=== PATIENT | male | born 1935 | race Caucasian/White ===

== ENCOUNTER 2019-01-03 17:01 | Inpatient (IN) | payer MEDICARE, OTHER ==
[~2019-01-03] VITALS: Ht 188 cm; Wt 166.0 kg
[2019-01-03] MEDS ORDERED: BISA10S PR (17:26)
[2019-01-03] MEDS ORDERED: CYCL10 PO (17:26)
[2019-01-03] MEDS ORDERED: ACET500 (17:26)
[2019-01-03] MEDS ORDERED: Prozac20 MG PO (17:27)
[2019-01-03] MEDS ORDERED: ERGO400 PO (17:27)
[2019-01-03] MEDS ORDERED: LIDO700A20 TOP (17:28)
[2019-01-03] MEDS ORDERED: MAGOXI400 PO (17:28)
[2019-01-03] MEDS ORDERED: MELO7.5 PO (17:29)
[2019-01-03] MEDS ORDERED: Lopressor 25 mg25 MG PO (17:29)
[2019-01-03 17:44] LABS: BASOPHILS ABSOLUTE AUTO 0.03 K/mm3 (0.00-0.23); BASOPHILS PERCENT AUTO 0 % (0-2); EOSINOPHILS PERCENT AUTO 0 % (0-6); Hematocrit 42.5 % (37.0-53.0); Hemoglobin 13.2 g/dL (13.5-17.5); IMMATURE GRAN ABSOLUTE AUTO 0.04 K/mm3 (0.00-0.10); IMMATURE GRAN PERCENT AUTO 1 % (0-1); LYMPHOCYTES PERCENT AUTO 5 % (21-46); MONOCYTES ABSOLUTE AUTO 0.59 K/mm3 (0.16-1.47); MONOCYTES PERCENT AUTO 7 % (4-13); Mean Corpuscular HGB 31.1 pg (26.0-34.0); Mean Corpuscular HGB Conc 31.1 g/dL (31.5-36.5); Mean Corpuscular Volume 100 fL (80-100); Mean Platelet Volume 9.2 fL (9.1-12.4); NEUTROPHILS ABSOLUTE AUTO 7.17 K/mm3 (1.96-9.15); NEUTROPHILS PERCENT AUTO 87 % (41-73); Platelet Count 349 K/mm3 (150-400); RDW Coefficient Variation 15.8 % (11.7-14.2); RDW Standard Deviation 58.1 fL (35.1-46.3); Red Blood Cell Count 4.24 M/mm3 (4.30-5.90); White Blood Cell Count 8.23 K/mm3 (4.00-11.30)
[2019-01-03 18:09] LABS: Source, Urine Catheter
[2019-01-03] MEDS ORDERED: Milk Of Ma400 MG/5 M PO (18:11)
[2019-01-03] MEDS ORDERED: OSEL75CA PO (18:11)
[2019-01-03] MEDS ORDERED: PANT40 PO (18:12)
[2019-01-03 18:15] LABS: Alanine Aminotransfer (ALT/SGP 20 U/L (12-78); Albumin, Blood 2.4 g/dL (3.4-5.0); Albumin/Globulin Ratio 0.5 (0.8-1.8); Alk Phos 174 U/L (50-136); Anion Gap 4 mmol/L (6-16); Aspartate Aminotrans (AST/SGOT 32 U/L (12-37); Bilirubin, Total 0.6 mg/dL (0.1-1.0); Blood Urea Nitrogen 17 mg/dL (8-24); Bun/Creatinine Ratio 19.4 (12.0-20.0); CO2, Blood 34 mmol/L (21-32); Calcium, Blood 8.9 mg/dL (8.5-10.1); Chloride, Blood 100 mmol/L (98-108); Creatinine, Blood 0.88 mg/dL (0.60-1.20); Globulin, Blood 5.1 g/dL (2.2-4.0); Glomerular Filtration Rate >60 (60-); Glucose, Blood 117 mg/dL (70-99); Sodium, Blood 138 mmol/L (136-145); Total Protein, Blood 7.5 g/dL (6.4-8.2)
[2019-01-03] MEDS ORDERED: ALBU2.5V5 NEB (18:18)
[2019-01-03] MEDS ORDERED: GAVILAX17 GM PO (18:18)
[2019-01-03] MEDS ORDERED: Senna8.6 MG PO (18:19)
[2019-01-03 18:32] LABS: Appearance, Urine Bloody (Clear); Bilirubin, Urine Neg (Neg); Blood, Urine 5+ (Neg); Color, Urine Red (P-Yellow); Glucose Qualitative, Urine Neg (Neg); Ketones, Urine 1+ (Neg); Leukocyte Esterase, Urine Neg (Neg); Nitrite, Urine Neg (Neg); Protein, Urine 4+ (Neg); Specific Gravity, Urine 1.015 (1.003-1.022); Urobilinogen, Urine NORM (Normal); pH, Urine 6.5 (5.0-8.0)
[2019-01-03 18:40] LABS: Bacteria Few /hpf; Red Blood Cells, Urine TNTC /hpf (0-2); Squamous Epithelial Cells Not Seen /hpf (Few); White Blood Cells, Urine 0-2 /hpf (0-5)
[2019-01-03 19:01] LABS: PCO2 Arterial 50.5 mmHg (35-45); PO2 Arterial 70.5 mmHg (80-100); pH Blood Arterial 7.42 (7.35-7.45)
--- NOTE | 2019-01-03 23:28 | NUR ---
CALLED MELVI GARDNER RN FOR TRANSFER REPURT ON PT BEING ADMITTED WITH AFIB RVR HYPOXIA SOB AND NEW ONSET BLOODY URINE OUT VIA INDWELLING KNAPP CATH. UA SHOWED RBC TNTC AND CULTURE WAS NOT INDICATED. WILL BE TELE BED NPO AND HAS DNR STATUS. SON WAS UPDATED BY ER AND HE IS POA. AWAIT ADMISSION
--- NOTE | 2019-01-04 02:29 | NUR ---
83 YEAR OLD MALE ADMITTED TO MEDICAL FLOOR WITH AFIB RVR SEPSIS HEMATURIA AND HYPOXIA. PT MINIMALLY RESPONSIVE NPO IN IV FLUIDS. IV ANTIBIOTICS. ON 10 L HIGH FLOW OXYGEN, 3 L BASELINE PER REPORT. DNR STATUS. ON TEL MONITOR AFIB RATE 107.
[2019-01-04 05:00] LABS: Alanine Aminotransfer (ALT/SGP 20 U/L (12-78); Albumin/Globulin Ratio 0.5 (0.8-1.8); Alk Phos 145 U/L (50-136); Anion Gap 5 mmol/L (6-16); Aspartate Aminotrans (AST/SGOT 33 U/L (12-37); Bilirubin, Total 0.3 mg/dL (0.1-1.0); Blood Urea Nitrogen 22 mg/dL (8-24); CO2, Blood 33 mmol/L (21-32); Calcium, Blood 8.2 mg/dL (8.5-10.1); Chloride, Blood 103 mmol/L (98-108); Creatinine, Blood 0.96 mg/dL (0.60-1.20); Globulin, Blood 4.3 g/dL (2.2-4.0); Glomerular Filtration Rate >60 (60-); Glucose, Blood 94 mg/dL (70-99); Magnesium, Blood 1.8 mg/dL (1.6-2.4); Sodium, Blood 141 mmol/L (136-145); Total Protein, Blood 6.3 g/dL (6.4-8.2)
[2019-01-04 07:23] LABS: BASOPHILS ABSOLUTE AUTO 0.04 K/mm3 (0.00-0.23); BASOPHILS PERCENT AUTO 0 % (0-2); EOSINOPHILS ABSOLUTE AUTO 0.01 K/mm3 (0.00-0.68); EOSINOPHILS PERCENT AUTO 0 % (0-6); Hematocrit 42.5 % (37.0-53.0); Hemoglobin 13.3 g/dL (13.5-17.5); IMMATURE GRAN ABSOLUTE AUTO 0.06 K/mm3 (0.00-0.10); IMMATURE GRAN PERCENT AUTO 1 % (0-1); LYMPHOCYTES ABSOLUTE AUTO 0.83 K/mm3 (0.84-5.20); LYMPHOCYTES PERCENT AUTO 9 % (21-46); MONOCYTES ABSOLUTE AUTO 1.01 K/mm3 (0.16-1.47); MONOCYTES PERCENT AUTO 11 % (4-13); Mean Corpuscular HGB 30.6 pg (26.0-34.0); Mean Corpuscular HGB Conc 31.3 g/dL (31.5-36.5); Mean Corpuscular Volume 98 fL (80-100); NEUTROPHILS ABSOLUTE AUTO 7.17 K/mm3 (1.96-9.15); NEUTROPHILS PERCENT AUTO 79 % (41-73); Platelet Count 242 K/mm3 (150-400); RDW Coefficient Variation 15.8 % (11.7-14.2); RDW Standard Deviation 56.3 fL (35.1-46.3); Red Blood Cell Count 4.34 M/mm3 (4.30-5.90); White Blood Cell Count 9.12 K/mm3 (4.00-11.30)
--- NOTE | 2019-01-04 07:57 | NUR ---
unable to give tylenol rectal suppository. Pt unable to roll side to side. more alert this am, able to verbalize. Urine continues to have clots and maroon colored urine. denies acute pain afebrile.
--- NOTE | 2019-01-04 08:43 | NUR ---
PT. MORBIDLY OBESE AND UNABLE TO ROLL OR TURN IN. REQUESTED A LIFT ROOM FOR PATIENT. ROOM #311 ASSIGNED. REPORT GIVEN TO MARIE COATS AND DR. FLOREZ NOTIFIED. PT. IS LETHARGIC BUT OPENS EYES WHEN SPOKEN TO. ON 8 LITERS OXYGEN VIA OXYMIZER. KNAPP CATHETER FLUSHED DUE TO BLOOD CLOTS URINE DARK RED. PAS IN PLACE, FLUIDS RUNNING. CNAS MOVED PT TO 311.
[2019-01-04 11:29] LABS: Influenza A Negative (NEGATIVE); Influenza B Negative (NEGATIVE)
[2019-01-04 17:19] LABS: Vancomycin, Random 6.7 ug/mL
--- NOTE | 2019-01-04 19:32 | NUR ---
SHIFT SUMMARY: PATIENT XFR FROM ROOM 363 THIS SHIFT; PT OBESE; REQUIRES LIFT ROOM. TELE IN PLACE; A-FIB c RVR; METOPROLOL IV FOR HR>120BPM. O2 @ 8L VIA OXYMIZER. CHRONIC KNAPP IN PLACE; PATENT AND DRAINING DARK URINE. INFLUENZA A&B NEGATIVE; TAMIFLU D/C'd. LEVAQUIN & VANCOMYCIN IV. PATIENT NPO AWAITING SWALLOW EVAL. REPORT GIVEN TO ONCOMING RN.
--- NOTE | 2019-01-04 21:37 | NUR ---
1999 PATIENT WAS FOUND TO BE 80/40S AT SHIFT CHANGE PER REPORT FROM DAY NURSE THIS IS 2ND TO IV METOPROLOL GIVEN FOR SUSTAINED HR OF 130S PER TELEMETRY. RAISED PATIENTS HOB AND PT IS ALOS TEMP OF 101 SO STIPPED BLANKETS OFF AND LOWERED ROOM TEMP. PT HAS IVF INFUSING AT 125 ML/HR 2114 RETURNED TO RECHECK PATIENT VITALS, BP IMPROVED 125/80'S BUT NOW POOR PROFUSION, TEMP 99.2, SPOKE TO RT AND TELEMETRY AND CHARGE BEFORE CALLING DR TO HAVE PATIENT MOVED TO ICU 2134: ALSO REPORTED CITIAC[employer] VALUE; POSITIVE BLOOD CX - GRAM + COCCYI REPORTED BY ROBERT IN MICROBIOLOGY AT 2124
--- NOTE | 2019-01-04 22:15 | NUR ---
GAVE REPORT TO PCU PHYLLIS MONROY
--- NOTE | 2019-01-04 22:21 | NUR ---
PATIENT LEFT THE FLOOR TO PCU
--- NOTE | 2019-01-04 22:35 | NUR ---
PT ARRIVAL. PT WAS A TRANSFER FROM MEDICATL FLOOR TO THIS UNIT. PT WAS ADMITTED DUE TO AFIB RVR, HIS HR IS IN THE 130'S-140'S AND HIS BP ON ARRIVAL WAS 96/56, PT WAS FEBRILE AT 101.8. PT IS NPO DUE TO ASPIRATION RISK. COOLING MEASURES WERE STARTED. TELE INTACT, AFIB W/BBB IN THE 130'S, PT'S BP ABOVE, EDEMA NOTED TO THE PT'S LLE IS 3+, RLE IS 2+, PT HAS GENERALIZED EDEMA WELL. PT'S L/S DIM T/O WITH FINE COARSENESS IN THE BASES. PT IS ON 15L OXYMIZER AT 91%, RR 32, EVEN BUT LABORED, PT IS ABLE TO ANSWER YES OR NO QUESTIONS, HE IS A&Ox4. BT PRESENT BUT VERY HYPOACTIVE, ABD IS MILD DISTENDED, FIRM AND TENDER TO PALP. PT'S KNAPP IS PATENT DRAINING TEA COLORED URINE WITH SEDIMENT, THIS IS A CHRONIC KNAPP DUE TO RETENTION. CALL LIGHT IN REACH, BED IS LOCKED AND LOW WILL CONTINUE TO MONITOR.
[2019-01-05 04:08] LABS: Vancomycin, Random 12.2 ug/mL
--- NOTE | 2019-01-05 04:59 | NUR ---
CALLED PATIENTS SON TO MAKE HIM AWARE OF PATIENTS MOVE TO PCU 16
--- NOTE | 2019-01-05 05:59 | NUR ---
SHIFT SUMMARY. PT'S IS ON 13 L OXYMIZER WITH O2 SATS AT 94%. PT HAS BEEN TURNED Q2 HOURS. PT HAD A MED INCONT BM, MEPILEX WAS PLACED ON HIS BUTTOCK DUE TO OPEN AREA/SKIN TEAR (SEE PICTURES IN CHART.) PT ALSO HAS AN OPEN YEAST RASH (SEE PICTURES IN CHART) UNDER HIS PANNUS, NYSTATIN POWDER WAS OBTAINED. DRESSING WAS PLACED ON A SMALL OPEN AREA BEHIND THE PT'S RIGHT EAR (SEE PICTURES IN CHART). PT'S HR HAS TRENDED UP TO THE 140'S-150'S PER HYDROMETER TESTER, HIS BP WAS 114/57, PT WAS MEDICATED PER EMAR W/LOPRESSOR. PT'S HR DROPPED DOWN TO THE 120'S, HIS BP: 96/56. CALL LIGHT IN REACH, BED IS LOCKED AND LOW WILL CONTINUE TO MONITOR UNTIL REPORT IS GIVEN TO ONCOMING RN.
--- NOTE | 2019-01-05 07:30 | NUR ---
RECEIVED REPORT FROM MARIE VASQUEZ, AND ASSUMED CARE OF PT.
--- NOTE | 2019-01-05 09:05 | NUR ---
DR. KNIGHT AT BEDSIDE FOR EVALUATION.
--- NOTE | 2019-01-05 20:38 | NUR ---
ASSUMED CARE - PCU NOC PATIENT ALERT AND ORIENTED TO SELF, LOCATION AND SITUATION. PATIENT REPORTS BACK PAIN BUT REFUSED PAIN MEDICATION. PATIENT HAS CHRONIC KNAPP IN PLACE, BLOOD NOTED AROUND MEATUS, URINE CLOUDY WITH SEDIMENT. PANIS HAS WOUND IN SKIN FOLDS WITH YEAST NOTED - NYSTATIN APPLIED. PATIENT IS A CEILING LIFT PATIENT, REPOSITIONED WITH PILLOWS AND LIFE WITH 2 PERSON MAXIMUM. SWELLING/EDEMA NOTED IN BLE - BLE ELEVATED WITH 2 PILLOWS (HEALS FLOATED). PATIENT HAS NO MOVEMENT OF BLE (QUAD AT BASELINE WITH UPPER EXTREMTY MOVEMENT LIMITED). VSS - PATIENT TITRATED DOWN TO 10 LPM ON OXYMIZER. RESP E/U AT REST. WILL CONTINUE TO MONITOR. CALL LIGHT W/I REACH.
--- NOTE | 2019-01-06 00:06 | NUR ---
NOTIFIED MD YOUNGER NOTIFIED MD THAT PATIENTS HR WAS SUSTAINING IN THE 130'S-140'S - AND THAT PATIENT HAD METOPROLOL IV PUSH THAT THE PERAMETERS STOPPED THIS RN FROM GIVING DUE TO SBP LESS THAN 110 - MD ORDERED 500 CC BOLUS AND STATED TO HOLD METOPROLOL UNTIL SBP GREATER THAN 110.
--- NOTE | 2019-01-06 02:20 | NUR ---
MD YOUNGER NOTIFIED NOTIFIED OF HEART RATE 150'S IN AFIB AND CONTINUED SBP <110. NEW ORDERS GIVEN.
--- NOTE | 2019-01-06 06:13 | NUR ---
PCU NOC SHIFT SUMMARY PATIENT ALERT AND ORIENTED X4 T/O SHIFT. PATIENT BEDBOUND AT BASELINE (FUNCTIONAL UPPER EXTREMETY QUAD). PATIENT HAS CHRONIC BACK PAIN - REFUSED PAIN MEDICATION T/O SHIFT. HR REMAIN AFIB RVR IN THE 130-160'S, MD NOTIFIED - MEDICATIONS GIVEN PER EMAR. PATIENTS OXYGEN TITRATED DOWN FROM 13 TO 4 LPM OXYMIZER THIS SHIFT. WILL CONTINUE TO MONITOR AND REPORT TO DAYSHIFT RN, CALL LIGHT W/I REACH - PATIENT USES APPROPRIATELY.
[2019-01-06 08:30] LABS: Vancomycin, Trough 17.2 ug/mL (5.0-10.0)
--- NOTE | 2019-01-06 08:40 | NUR ---
ASSUMED CARE / DR. KNIGHT: REPORT RECEIVED FROM ANYI Meadows RN. ASSUMED CARE OF THIS PT AT APPROX 0700. ON ASSESSMENT, PT IS WORKING W/ SPEECH THERAPY. NEW GUIDELINES FOR SAFE SWALLOWING HAVE BEEN POSTED ON PT WHITEBOARD. MEDS TO BE GIVEN WHOLE W/ APPLESAUCE, PT TO BE SITTING FULLY UPRIGHT TOLERATED FOR PO INTAKE. PT CURRENTLY ON 4L NC W/ O2 SATS > 90%. HE DENIES CP OR SOB. DOES HAVE C/O CHRONIC PAIN TO LOW BACK THAT IS EXACERBATED W/ MVMT & MANAGEABLE AT REST. PROVIDER AT BEDSIDE TO SEE PT. ORDERS WILL BE PLACED FOR MEDS TO MANAGE TACHYCARDIA. NO OTHER CHANGES AT THIS TIME, WILL AWAIT FAMILY TO DISCUSS/DECIDE REGARDING HOSPICE PER REPORT. WILL CONTINUE TO MONITOR & UPDATE NEEDED.
--- NOTE | 2019-01-06 18:32 | NUR ---
SHIFT SUMMARY: NO ACUTE CHANGES THIS SHIFT. PT REMAINS A&O, COOPERATIVE W/ CARE. HE IS OFTEN FORGETFUL & MUMBLES WHEN SPEAKING AT TIMES. Q2H TURNS, BEDREST. GROSS MVMT OF BUE, NO MVMT OF BLE. LS ARE DIM T/O, PT REMAINS ON 4L OXYMIZER W/ O2 SATS > 90%. TITRATED UP TO 5L x1 WHEN DESATS NOTED AFTER PT REMOVED OXYMIZER TO "PICK HIS NOSE." MONITOR CONTINUES SHOWING AFIB, HR AVG 110-140s. PT HAS GOOD APPETITE, IS INCONTINENT OF BOWEL. C/O NAUSEA W/ DRY HEAVING AFTER EATING A SMALL AMNT OF DINNER THIS EVENING, MEDS PER EMAR RESOLVED THIS. CHRONIC KNAPP REMAINS PATENT/DRAINING, URINE IS CLOUDY W/ SEDIMENT. MEATUS CONTINUES OOZING & BLEEDING A SMALL AMNT AROUND KNAPP. NYSTATIN ORDERED FOR YEAST/REDNESS TO PANUS FOLDS. POWERGLIDE TO WAQAS DRAWS W/O DIFFICULTY. UPON SPEAKING W/ PT's SON, VISHAL, THIS AFTERNOON HE STS THAT HE WOULD PREFER THAT THE PT BE SENT BACK TO [facility], AT WHICH HE HAS LIVED FOR APPROX 7 YRS, ON DISCHARGE. CIGAR INSPECTOR INVOLVED W/ CARE. WILL CONTINUE TO MONITOR & REPORT OFF TO ONCOMING RN.
--- NOTE | 2019-01-06 19:45 | NUR ---
ASSUMED CARE PT SLEEPING IN ROOM COMFORTABLY. PER DAY SHIFT RN NO ACUTE CHANGES IN STATUS. PT RESP EVEN UNLABORED ON 4L VIA OXIMIZER W/ SATS >92%. PT REQUIRES Q2 HR TURNING USING CEILING LIFT. REPORTS NO PAIN AT REST, BACK CHRONIC BACK PAIN THAT FLARES WITH SUDDEN MOVEMENTS. CATHETER NOTED TO BE DRAINING DARK YELLOW URINE. DENIES CP, OR SOB. CALL LIGHT IS IN REACH.
[2019-01-07 04:10] LABS: BASOPHILS ABSOLUTE AUTO 0.01 K/mm3 (0.00-0.23); BASOPHILS PERCENT AUTO 0 % (0-2); EOSINOPHILS ABSOLUTE AUTO 0.05 K/mm3 (0.00-0.68); EOSINOPHILS PERCENT AUTO 1 % (0-6); Hematocrit 34.2 % (37.0-53.0); Hemoglobin 10.3 g/dL (13.5-17.5); IMMATURE GRAN ABSOLUTE AUTO 0.01 K/mm3 (0.00-0.10); IMMATURE GRAN PERCENT AUTO 0 % (0-1); LYMPHOCYTES ABSOLUTE AUTO 0.91 K/mm3 (0.84-5.20); LYMPHOCYTES PERCENT AUTO 20 % (21-46); MONOCYTES ABSOLUTE AUTO 0.79 K/mm3 (0.16-1.47); MONOCYTES PERCENT AUTO 17 % (4-13); Mean Corpuscular HGB 30.8 pg (26.0-34.0); Mean Corpuscular HGB Conc 30.1 g/dL (31.5-36.5); Mean Platelet Volume 9.8 fL (9.1-12.4); NEUTROPHILS PERCENT AUTO 61 % (41-73); Platelet Count 211 K/mm3 (150-400); RDW Coefficient Variation 15.6 % (11.7-14.2); RDW Standard Deviation 58.9 fL (35.1-46.3); Red Blood Cell Count 3.34 M/mm3 (4.30-5.90); White Blood Cell Count 4.57 K/mm3 (4.00-11.30)
[2019-01-07 04:18] LABS: Mean Corpuscular Volume 102 fL (80-100)
[2019-01-07 04:23] LABS: Anion Gap 4 mmol/L (6-16); Blood Urea Nitrogen 12 mg/dL (8-24); Bun/Creatinine Ratio 16.9 (12.0-20.0); CO2, Blood 33 mmol/L (21-32); Calcium, Blood 7.9 mg/dL (8.5-10.1); Chloride, Blood 104 mmol/L (98-108); Creatinine, Blood 0.71 mg/dL (0.60-1.20); Glomerular Filtration Rate >60 (60-); Glucose, Blood 95 mg/dL (70-99); Potassium, Blood 4.1 mmol/L (3.5-5.5); Sodium, Blood 141 mmol/L (136-145)
--- NOTE | 2019-01-07 07:32 | NUR ---
SHIFT SUMMARY PT RESTING IN ROOM COMFORTABLY. NO ACUTE CHANGES IN PT STATUS OVERNIGHT. DENIES CP, DENIES SOB. RESP EVEN UNLABORED ON 4L OXIMIZER. W/ SATS >92%. PT WAS REPOSITIONED Q2HRS T/O NIGHT TOLERATED WELL. PT REPORTS BACK PAIN FINE AT REST. SOME PAIN WITH REPOSITIONING THAT GOES AWAY W/ REST. CALL LIGHT IS IN REACH.
[2019-01-07 09:03] LABS: Vancomycin, Trough 20.1 ug/mL (5.0-10.0)
--- NOTE | 2019-01-07 17:39 | NUR ---
SHIFT SUMMARY PT ALERT AND ORIENTED. VS STABLE THROUGHOUT SHIFT. HR HAS BEEN 110'S AFIB. O2 SATS >92% ON 4L OXYMIZER. PT HAS BEEN REPOSITIONED Q2H. PT COMPLAINS OF BACK PAIN AND HAS DIFFICULTY TOLERATING SITTING POSITION FOR MEALS. PT MEDICATED NEEDED PER EMAR. PT STATES PAIN SUBSIDES WITH REST. KNAPP PATENT AND DRAINING. WILL CONTINUE TO MONITOR AND REPORT TO ONCOMING RN. CALL LIGHT IN REACH.
--- NOTE | 2019-01-07 19:50 | NUR ---
ASSUMED CARE PT RESTING IN ROOM COMFORTABLY AT THIS TIME. PER DAY SHIFT PT HAD NO ACUTE CHANGES IN STATUS. RN DID REPORT PT BACK PAIN WAS INCREASED TODAY, AND PT WAS UNABLE TO TOLERATE SITTING UPRIGHT FOR MEALS, AND DID NOT EAT MUCH T/O THE DAY. PT WAS MEDICATED FOR PAIN BEFORE DINNER AND WAS ABLE TO EAT. RESP IS EVEN UNLABORED ON 4L OXIMZER W/ SATS >92%. PT REQUIRING Q2HR TURNS USING CEILING LIFT. DENIES OTHER NEEDS AT THIS TIME. CALL LIGHT IS IN REACH.
--- NOTE | 2019-01-08 08:07 | NUR ---
pt laying in bed awake a/ox3, pleasant and cooperative with care, follows commands well, states he has back pain 7/, but states he is ok. explained that we need to sit him up for breakfast, he said he needs pain meds then. 25mcg fentanyl given brought pain down to 2/10. lungs are clear in upper lees, dim in bases, resp even and unlabored, no cough noted, hrirr, tele in place running afib in the low 100's per monitor, see strip, 2+ edema noted to b/l le, scuds in place, cap refill <3sec, vs stable, afebrile, iv power glide to christina, site is clear and patent, btx4, abd large soft nontender, chronic bynum cath draining cloudy urine, skin c/w/d, states he is unable to move legs, was wiggling feet some, very gross motor movement, is able to pull himself with arms, speaks in almost a wisper, judy, call light in reach.
--- NOTE | 2019-01-08 13:30 | NUR ---
PT RESTING IN BED AWAKE, A/OX3, PLEASANT AND COOPERATIVE WITH CARE, FOLLOWS COMMANDS WELL, DENIES PAIN, HAS BEEN TURNED Q 2 HRS. NO ACUTE CHANGES THIS SHIFT. CALL LIGHT IN REACH.
--- NOTE | 2019-01-08 19:45 | NUR ---
ASSUMED CARE PT RESTING IN ROOM COMFORTABLY. PER DAY SHIFT PT HAD NO ACUTE CHANGES IN STATUS. RESP EVEN UNLABORED ON 4L O2 VIA NC. PT REPORTS CONTINUED CHRONIC BACK PAIN. REPSORT FEELS BETTER TONIGHT, JUST STIFF. PT HAD BEEN MEDICATED FOR PAIN EARLY IN THE DAY AND WAS ABLE TO SIT UPRIGHT FOR MEALS ACCORDING TO DAY SHIFT. PT DENIES NEED FOR MEDICATIONS AT THIS TIME. REPORTS WILL CALL IF PAIN INCREASES. PT REPOSITIONED AT SHIFT CHANGE WILL CONTINUE Q2HR TURNS. CALL LIGHT IN REACH.
--- NOTE | 2019-01-09 06:55 | NUR ---
SHIFT SUMMARY PT SLEEPING IN ROOM COMFORTABLY AT THIS TIME. NO ACUTE CHANGES T/O NIGHT. PT SLEEPT WELL AND HAD ONE COMPLAINT OF BACK PAIN. PT WAS MEDICATED PER EMAR FOR PAIN, AND REMAINED COMFORTBL T/O NIGHT. PT WAS TURNED AND POSITION ADJUSTED Q2HRS. CATHETER DRAINING DARK YELLOW URINE. CATH CARE PROVIDED AND SLIGHT BLOODY DRAINAGE NOTED TO MEATUS. AREA CLEANED AND SKIN IS INTACT. RESP EVEN UNLABORED ON 4L NC. SATS >92%. CALL LIGHT IS IN REACH.
[2019-01-09] MEDS ORDERED: DILT180 PO (15:28)
[2019-01-09] MEDS ORDERED: ELIQUIS5 MG PO (15:31)
--- NOTE | 2019-01-09 19:38 | NUR ---
PT DC'D TO [facility], TAKEN TO FACILITY BY [facility]. REPORT CALLED TO MARIE QUISPE AT [facility]. PT DC'D IN STABLE CONDITION
== END 2019-01-09 18:45 | DRG 871 ==
LOC: ER 17:01 → MEDS 22:33 → PCU 01-04 22:20
PROVIDERS: Emergency Medicine; Hospitalist; Internal Medicine; Pharmacist; ADMIT Internal Medicine
DX: A41.9 Sepsis, unspecified organism (principal); R53.2 Functional quadriplegia; J96.01 Acute respiratory failure with hypoxia; J96.02 Acute respiratory failure with hypercapnia; R65.21 Severe sepsis with septic shock; K56.7 Ileus, unspecified; E66.2 Morbid (severe) obesity with alveolar hypoventilation; I50.20 Unspecified systolic (congestive) heart failure; N17.9 Acute kidney failure, unspecified; I13.0 Hypertensive heart and chronic kidney disease with heart failure and stage 1 through stage 4 chronic kidney disease, or unspecified chronic kidney disease; Z87.891 Personal history of nicotine dependence; I48.91 Unspecified atrial fibrillation; Z68.38 Body mass index [BMI] 38.0-38.9, adult; Z66 Do not resuscitate; T40.605A Adverse effect of unspecified narcotics, initial encounter; Y92.9 Unspecified place or not applicable; R33.9 Retention of urine, unspecified; N18.9 Chronic kidney disease, unspecified
CPT/HCPCS: 36415; 36600; 51702; 71045; 80048; 80053; 80202; 81001; 82803; 83605; 83735; 83880; 84145; 84484; 85025; 87040; 87804; 92526; 92610; 93005; 93010; 94640; 94760; 94762; 96361; 96374; 96375; 99285-25; C1751; C9113; J1956; J2405; J3010; J3370; J7030; J7050; J7120

== ENCOUNTER 2019-01-14 12:12 | Emergency (ER) | payer MEDICARE, OTHER ==
[~2019-01-14] VITALS: Ht 180.3 cm; Wt 145.2 kg
[~2019-01-14 12:12] MED LIST: ACET500; ALBU2.5V5 NEB; BISA10S PR; CYCL10 PO; DILT180 PO; ELIQUIS5 MG PO; ERGO400 PO; GAVILAX17 GM PO; LIDO700A20 TOP; Lopressor 25 mg25 MG PO; MAGOXI400 PO; MELO7.5 PO; Milk Of Ma400 MG/5 M PO; OSEL75CA PO; PANT40 PO; Prozac20 MG PO; Senna8.6 MG PO
[2019-01-14 13:21] LABS: BASOPHILS ABSOLUTE AUTO 0.04 K/mm3 (0.00-0.23); BASOPHILS PERCENT AUTO 1 % (0-2); EOSINOPHILS ABSOLUTE AUTO 0.14 K/mm3 (0.00-0.68); EOSINOPHILS PERCENT AUTO 2 % (0-6); Hematocrit 37.2 % (37.0-53.0); Hemoglobin 11.3 g/dL (13.5-17.5); IMMATURE GRAN ABSOLUTE AUTO 0.04 K/mm3 (0.00-0.10); IMMATURE GRAN PERCENT AUTO 1 % (0-1); LYMPHOCYTES ABSOLUTE AUTO 1.15 K/mm3 (0.84-5.20); LYMPHOCYTES PERCENT AUTO 15 % (21-46); MONOCYTES ABSOLUTE AUTO 1.34 K/mm3 (0.16-1.47); MONOCYTES PERCENT AUTO 17 % (4-13); Mean Corpuscular HGB 29.7 pg (26.0-34.0); Mean Corpuscular HGB Conc 30.4 g/dL (31.5-36.5); Mean Corpuscular Volume 98 fL (80-100); Mean Platelet Volume 9.5 fL (9.1-12.4); NEUTROPHILS ABSOLUTE AUTO 5.03 K/mm3 (1.96-9.15); NEUTROPHILS PERCENT AUTO 65 % (41-73); Platelet Count 422 K/mm3 (150-400); RDW Coefficient Variation 15.4 % (11.7-14.2); RDW Standard Deviation 55.5 fL (35.1-46.3); White Blood Cell Count 7.74 K/mm3 (4.00-11.30)
[2019-01-14 13:44] LABS: Alanine Aminotransfer (ALT/SGP 18 U/L (12-78); Albumin/Globulin Ratio 0.4 (0.8-1.8); Alk Phos 126 U/L (50-136); Anion Gap 2 mmol/L (6-16); Aspartate Aminotrans (AST/SGOT 23 U/L (12-37); Bilirubin, Total 0.5 mg/dL (0.1-1.0); Blood Urea Nitrogen 13 mg/dL (8-24); Bun/Creatinine Ratio 15.7 (12.0-20.0); CO2, Blood 42 mmol/L (21-32); Calcium, Blood 8.7 mg/dL (8.5-10.1); Chloride, Blood 95 mmol/L (98-108); Creatinine, Blood 0.83 mg/dL (0.60-1.20); Globulin, Blood 4.5 g/dL (2.2-4.0); Glomerular Filtration Rate >60 (60-); Glucose, Blood 109 mg/dL (70-99); Potassium, Blood 3.8 mmol/L (3.5-5.5); Sodium, Blood 139 mmol/L (136-145); Total Protein, Blood 6.5 g/dL (6.4-8.2)
[2019-01-14 15:21] LABS: Source, Urine Catheter
[2019-01-14 15:27] LABS: Bilirubin, Urine Neg (Neg); Blood, Urine 4+ (Neg); Glucose Qualitative, Urine Neg (Neg); Ketones, Urine Neg (Neg); Leukocyte Esterase, Urine 3+ (Neg); Nitrite, Urine Neg (Neg); Protein, Urine 2+ (Neg); Urobilinogen, Urine NORM (Normal)
[2019-01-14 15:32] LABS: Appearance, Urine Cloudy (Clear); Color, Urine Yellow (P-Yellow)
[2019-01-14 15:34] LABS: White Blood Cells, Urine TNTC /hpf (0-5); Yeast/Fungi Urine Many /hpf
[2019-01-14 15:35] LABS: Bacteria Mod /hpf; Mucus Light (0-Heavy); Squamous Epithelial Cells Rare /hpf (Few)
[2019-01-14] MEDS ORDERED: CEFD300 PO (16:36)
== END 2019-01-14 18:35 | disposition home or self-care (01) ==
LOC: ER 12:12
PROVIDERS: Emergency Medicine
DX: N39.0 Urinary tract infection, site not specified (principal); I48.91 Unspecified atrial fibrillation; G47.33 Obstructive sleep apnea (adult) (pediatric); Z88.0 Allergy status to penicillin; Z88.2 Allergy status to sulfonamides; Z88.5 Allergy status to narcotic agent; Z91.012 Allergy to eggs; Z79.899 Other long term (current) drug therapy; Z87.891 Personal history of nicotine dependence
CPT/HCPCS: 71046; 80053; 81001; 85025; 85730; 87086; 93005; 93010; 96374; 99285-25; J0696